=== PATIENT | female | born 1935 | race Caucasian/White ===

== ENCOUNTER 2021-01-19 13:03 | Emergency (ER) | payer MEDICARE, OTHER ==
[~2021-01-19 13:03] MED LIST: ASPIR 8181 MG PO; ATENOLOL25 MG PO; ATIVAN0.5 MG PO; ATORVASTATIN CA10 MG PO; CO Q-10200 MG PO; D3-20002000 UNIT PO; DUONEB 2.5-0.5M1 AMP INH; DUONEB 2.5-0.5M1 AMP NEB; HYDROCODONE-APA1 TAB PO; LORAZEPAM 0.5M0.5 MG PO; MAG-OXIDE 400M400 MG PO; MUCINEX 600MG600 MG PO; NITROQUIK SL0.4 MG SL; NORVASC5 MG PO; OMEPRAZOLE40 MG PO; PHENERGAN25 M1 PO; PROTONIX 40MG T40 MG PO; SERTRALINE HCL50 MG PO; SYNTHROID50 MCG PO; TESSALON PERLE100 MG PO; VIBRAMYCIN100 MG PO; VITAMIN B-121000 MC1 PO; XALATAN2.5 ML OU; ZOLOFT25 MG PO
[2021-01-19] MEDS ORDERED: TRIAMCINOLONE 080 GM TOP ×2 (14:39→15:03)
== END 2021-01-19 15:03 | disposition home or self-care (01) ==
LOC: FER 13:03
DX: L30.9 Dermatitis, unspecified (principal); I10 Essential (primary) hypertension; Z88.0 Allergy status to penicillin; Z88.1 Allergy status to other antibiotic agents; Z79.899 Other long term (current) drug therapy; Z79.82 Long term (current) use of aspirin
CPT/HCPCS: 99282

== ENCOUNTER 2021-11-14 18:19 | Emergency (ER) | payer MEDICARE, OTHER ==
[~2021-11-14 18:19] MED LIST changes: +TRIAMCINOLONE 080 GM TOP
[2021-11-15] MEDS ORDERED: HYDROCODON-ACE1 EAC2 PO (01:13)
== END 2021-11-15 01:40 | disposition home or self-care (01) ==
LOC: FER 18:19
DX: S93.402A Sprain of unspecified ligament of left ankle, initial encounter (principal); S93.612A Sprain of tarsal ligament of left foot, initial encounter; X50.1XXA Overexertion from prolonged static or awkward postures, initial encounter
CPT/HCPCS: 73590; 73610; 73630

== ENCOUNTER 2022-03-10 18:34 | Emergency (ER) | payer MEDICARE ==
[~2022-03-10 18:34] MED LIST changes: +HYDROCODON-ACE1 EAC2 PO
[2022-03-10 21:05] LABS: BASOPHIL 0.2 % (0-2); EOSINOPHIL 0.1 % (0-7); HCT 49.6 % (37.0-47.0); HGB 16.5 g/dl (12.5-16.0); MCH 30.1 pg (25.0-31.0); MCHC 33.3 g/dL (32.0-36.0); MCV 90.5 fL (78.0-100.0); MPV 11.1 fL (6.0-9.5); NEUTROPHIL 89.9 % (41-80); NRBC 0; PLT 302 K/uL (150-400); RBC 5.48 M/uL (4.20-5.40); RDW 13.8 % (11.5-14.0); WBC 11.1 K/uL (4.0-10.5)
[2022-03-10 21:16] LABS: BILIRUBIN - TOTAL 1.1 mg/dL (0.2-1.0); BUN/CREAT RATIO (CALC) 22.6 RATIO; CREATININE 0.62 mg/dL (0.51-0.95); GLOBULIN (CALCULATION) 5.2 g/dL; POTASSIUM 3.4 mmol/L (3.5-5.1); TOTAL PROTEIN 9.2 g/dL (6.4-8.2)
[2022-03-10 23:50] LABS: BILIRUBIN 1+ mg/dL (NEGATIVE); BLOOD 3+ Ery/uL (NEGATIVE); COLOR YELLOW (YELLOW); GLUCOSE (U) 1+ mg/dL (NORMAL); LEUKOCYTES NEGATIVE Leu/uL (NEGATIVE); NITRITE NEGATIVE (NEGATIVE); PROTEIN 3+ mg/dL (NEGATIVE); SPECIFIC GRAVITY >=1.030 (1.001-1.030)
[2022-03-10 23:54] LABS: CLARITY CLOUDY (CLEAR)
[2022-03-10 23:58] LABS: BACTERIA 4+
[2022-03-11] MEDS ORDERED: BACTRIM DS TAB1 EACH PO (00:35)
== END 2022-03-11 00:01 | disposition home or self-care (01) ==
LOC: FER 18:34
PROVIDERS: Internal Medicine
DX: S32.028A Other fracture of second lumbar vertebra, initial encounter for closed fracture (principal); F03.90 Unspecified dementia, unspecified severity, without behavioral disturbance, psychotic disturbance, mood disturbance, and anxiety; Z88.0 Allergy status to penicillin; W19.XXXA Unspecified fall, initial encounter
CPT/HCPCS: 36415; 71250; 72131; 80053; 81001; 84145; 85025; 87076; 87088; 87186; J2405

== ENCOUNTER 2022-04-22 14:45 | Emergency (ER) | payer MEDICARE ==
[~2022-04-22 14:45] MED LIST changes: +BACTRIM DS TAB1 EACH PO
[2022-04-22 16:04] LABS: BASOPHIL 0.7 % (0-2); EOSINOPHIL 1.5 % (0-7); HCT 37.9 % (37.0-47.0); HGB 12.3 g/dl (12.5-16.0); LYMPHOCYTE 9.9 % (15-48); MCH 30.8 pg (25.0-31.0); MCHC 32.5 g/dL (32.0-36.0); MCV 94.8 fL (78.0-100.0); MONOCYTE 6.8 % (0-12); MPV 9.8 fL (6.0-9.5); NEUTROPHIL 80.5 % (41-80); NRBC 0; PLT 224 K/uL (150-400); RDW 15.2 % (11.5-14.0); WBC 5.4 K/uL (4.0-10.5)
[2022-04-22 16:22] LABS: BUN/CREAT RATIO (CALC) 7.8 RATIO; CREATININE 0.9 mg/dL (0.51-0.95); POTASSIUM 4.1 mmol/L (3.5-5.1)
[2022-04-22 16:22] LABS: BILIRUBIN NEGATIVE (NEGATIVE); BLOOD 1+ Ery/uL (NEGATIVE); CLARITY CLEAR (CLEAR); COLOR YELLOW (YELLOW); GLUCOSE (U) NORMAL (NORMAL); LEUKOCYTES TRACE Leu/uL (NEGATIVE); NITRITE NEGATIVE (NEGATIVE); PROTEIN NEGATIVE (NEGATIVE); SPECIFIC GRAVITY <=1.005 (1.001-1.030); UROBILINOGEN 0.2 mg/dL (0.2-1.0)
[2022-04-22 16:37] LABS: URINARY RBC RARE; URINARY WBC RARE
== END 2022-04-22 18:01 | disposition home or self-care (01) ==
LOC: FER 14:45
PROVIDERS: Nurse Practitioner Family
DX: S00.03XA Contusion of scalp, initial encounter (principal); M48.061 Spinal stenosis, lumbar region without neurogenic claudication; I10 Essential (primary) hypertension; J44.9 Chronic obstructive pulmonary disease, unspecified; F03.90 Unspecified dementia, unspecified severity, without behavioral disturbance, psychotic disturbance, mood disturbance, and anxiety; W19.XXXA Unspecified fall, initial encounter; Y92.129 Unspecified place in nursing home as the place of occurrence of the external cause
CPT/HCPCS: 36415; 70450; 72125; 72131; 80048; 81001; 84484; 85025

== ENCOUNTER 2022-04-23 02:04 | Emergency (ER) | payer MEDICARE ==
[2022-04-23 04:37] LABS: BASOPHIL 0.9 % (0-2); EOSINOPHIL 1.5 % (0-7); HCT 42.4 % (37.0-47.0); HGB 13.8 g/dl (12.5-16.0); LYMPHOCYTE 8.8 % (15-48); MCH 31.2 pg (25.0-31.0); MCHC 32.5 g/dL (32.0-36.0); MCV 95.7 fL (78.0-100.0); MONOCYTE 4.3 % (0-12); MPV 10.7 fL (6.0-9.5); NEUTROPHIL 84.1 % (41-80); NRBC 0; PLT 272 K/uL (150-400); RBC 4.43 M/uL (4.20-5.40); RDW 15.2 % (11.5-14.0); WBC 5.3 K/uL (4.0-10.5)
[2022-04-23 04:41] LABS: INR 1.31 (0.9-1.2); PROTHROMBIN TIME 15.6 SECONDS (11.8-13.4)
[2022-04-23 04:48] LABS: ALBUMIN 3.7 g/dL (3.4-5.0); BILIRUBIN - TOTAL 0.4 mg/dL (0.2-1.0); BUN/CREAT RATIO (CALC) 8.4 RATIO; CREATININE 0.83 mg/dL (0.51-0.95); GLOBULIN (CALCULATION) 3.8 g/dL; POTASSIUM 3.5 mmol/L (3.5-5.1); TOTAL PROTEIN 7.5 g/dL (6.4-8.2)
== END 2022-04-23 05:10 | disposition other institution (70) ==
LOC: FER 02:04
PROVIDERS: Emergency Medicine
DX: S06.5X0A Traumatic subdural hemorrhage without loss of consciousness, initial encounter (principal); W19.XXXA Unspecified fall, initial encounter; Y92.009 Unspecified place in unspecified non-institutional (private) residence as the place of occurrence of the external cause
CPT/HCPCS: 36415; 70450; 80053; 85025; 85610; J1953; J2405

== ENCOUNTER 2022-08-27 12:59 | Emergency (ER) | payer MEDICARE ==
[2022-08-27 14:36] LABS: BASOPHIL 0.7 % (0-2); EOSINOPHIL 1.1 % (0-7); HCT 39.6 % (37.0-47.0); HGB 12.9 g/dl (12.5-16.0); LYMPHOCYTE 20.2 % (15-48); MCH 30.5 pg (25.0-31.0); MCHC 32.6 g/dL (32.0-36.0); MCV 93.6 fL (78.0-100.0); MONOCYTE 5.1 % (0-12); MPV 10.9 fL (6.0-9.5); NEUTROPHIL 72.6 % (41-80); NRBC 0; PLT 258 K/uL (150-400); RBC 4.23 M/uL (4.20-5.40); RDW 13.5 % (11.5-14.0); WBC 6.1 K/uL (4.0-10.5)
[2022-08-27 14:51] LABS: ALBUMIN 3.2 g/dL (3.4-5.0); BILIRUBIN - TOTAL 0.4 mg/dL (0.2-1.0); BUN/CREAT RATIO (CALC) 18.9 RATIO; CREATININE 0.9 mg/dL (0.51-0.95); GLOBULIN (CALCULATION) 3.9 g/dL; POTASSIUM 4.1 mmol/L (3.5-5.1); TOTAL PROTEIN 7.1 g/dL (6.4-8.2)
[2022-08-27 16:09] LABS: BILIRUBIN NEGATIVE (NEGATIVE); BLOOD NEGATIVE Ery/uL (NEGATIVE); CLARITY CLEAR (CLEAR); COLOR YELLOW (YELLOW); GLUCOSE (U) NORMAL (NORMAL); LEUKOCYTES 1+ Leu/uL (NEGATIVE); NITRITE NEGATIVE (NEGATIVE); PROTEIN NEGATIVE (NEGATIVE); SPECIFIC GRAVITY 1.015 (1.001-1.030); UROBILINOGEN 0.2 mg/dL (0.2-1.0)
[2022-08-27 16:20] LABS: BACTERIA 2+
== END 2022-08-28 03:18 | disposition other institution (70) ==
LOC: FER 12:59
PROVIDERS: Emergency Medicine
DX: S32.028A Other fracture of second lumbar vertebra, initial encounter for closed fracture (principal); R29.6 Repeated falls; Z88.0 Allergy status to penicillin; Z28.311 Partially vaccinated for COVID-19; W19.XXXA Unspecified fall, initial encounter
CPT/HCPCS: 36415; 70450; 71045; 80053; 81001; 84484; 85025; 87076; 87088; 87186; 93005